=== PATIENT | male | born 1990 ===

== ENCOUNTER 2020-01-13 11:22 | Outpatient (REF) | payer OTHER, SELFPAY ==
[2020-01-13 14:32] LABS: Alanine Aminotransferase 14 U/L (0-40); Albumin Level 4.6 g/dL (3.5-5.0); Alkaline Phosphatase 82 U/L (39-117); Anion Gap 15 (12-20); Aspartate Amino Transferase 21 U/L (5-37); Blood Urea Nitrogen 14 mg/dL (9-16); Calcium 9.6 mg/dL (8.4-10.2); Carbon Dioxide 28 mmol/L (22-29); Chloride 102 mmol/L (96-108); Cholesterol 138 mg/dL; Estimated Glomerular Filt Rate > 60; Glucose Fasting 80 mg/dL (60-99); HDL Cholesterol 45 mg/dL; LDL Cholesterol Calculated 83 mg/dl; Potassium 4.6 mmol/l (3.3-5.1); Sodium 140 mmol/L (135-145); Total Protein 7.7 g/dL (6.5-8.0); Triglycerides 54 mg/dL
[2020-01-13 14:42] LABS: TSH reflex Free T4 2.46 mIU/mL (0.32-4.0)
== END 2020-01-13 11:23 | disposition home or self-care (01) ==
LOC: HO.HMGCLDS 11:22
PROVIDERS: PCP Nurse Practitioner Family; Visit Provider Nurse Practitioner Family
DX: Z00.00 Encounter for general adult medical examination without abnormal findings (principal); Z13.220 Encounter for screening for lipoid disorders; Z13.29 Encounter for screening for other suspected endocrine disorder
CPT/HCPCS: 80053; 80061; 84443

== ENCOUNTER 2022-01-27 12:00 | Outpatient (REF) | payer OTHER, SELFPAY ==
--- NOTE | ~2022-01-27 | XR_ITS ---
EXAMINATION: XR WRIST, LEFT CLINICAL INFORMATION: Left wrist pain COMPARISON: None TECHNIQUE: PA, lateral, oblique, and scaphoid views of the left wrist. FINDINGS: The bones and soft tissues are normal. No fracture. Alignment is anatomic with normal joint spaces. No erosions or abnormal soft tissue calcifications. XR/XR wrist LT min 3V IMPRESSION: Normal left wrist.
== END 2022-01-27 12:01 | disposition home or self-care (01) ==
LOC: HO.HMGCX 12:00
PROVIDERS: PCP Nurse Practitioner Family; Visit Provider Physician Assistant
DX: M25.532 Pain in left wrist (principal)
CPT/HCPCS: 73110

== ENCOUNTER → 2022-03-08 13:49 | Outpatient (BNVA) | payer OTHER, SELFPAY | PROVIDERS: PCP Nurse Practitioner Family; Visit Provider Orthopaedic Surgery | DX: M65.4 Radial styloid tenosynovitis [de Quervain] (principal) | CPT/HCPCS: 20550; 99202; J1100 ==

== ENCOUNTER → 2022-05-03 14:20 | Outpatient (BNVA) | payer OTHER, SELFPAY | PROVIDERS: PCP Nurse Practitioner Family; Visit Provider Orthopaedic Surgery | DX: M65.4 Radial styloid tenosynovitis [de Quervain] (principal) | CPT/HCPCS: 20550; 99212; J1100 ==

== ENCOUNTER → 2022-07-05 14:24 | Outpatient (BNVA) | payer OTHER, SELFPAY | PROVIDERS: PCP Nurse Practitioner Family; Visit Provider Orthopaedic Surgery | DX: M65.4 Radial styloid tenosynovitis [de Quervain] (principal) | CPT/HCPCS: 99212 ==

== ENCOUNTER 2022-07-06 11:30 | Outpatient (RCR) | payer OTHER, SELFPAY ==
--- NOTE | 2022-05-24 09:16 | MHC.OT.EP ---
[address] [phone] Occupational Therapy Plan of Care Patient Name: Mason Grace Date of Evaluation: 05/20/22 Diagnosis: Left wrist DeQuervains tenosynovitis Pain Location: 3-9. achy. Occasional sharp left radial wrist Pain Score: 6 Pain Scale Used: Numeric (0 - 10) Aggravating Factors: Left hand use , gripping, lifting , rotation Alleviating Factors: Avoiding, use of brace and occasional ibuprofen Assessment: Pt is a 31 yo male with a 4 month ho left Dequervains tenosynovitis slightly improved with 2 wrist injections and use of a Comfort cool thumb spica Today he report moderate to high level of pain significantly limiting his daily activities. ROM impairment and mild edema noted Pt will benefit from OT to address pain and progression of therapeutic exercise to promote healing and regain full pain free use of his non dominant left hand Frequency and Duration: The patient will be seen 2x wk x 5 wks Short Term Goals: Demo compliance with wrist protection and HEP Report <6/10 at worst with use of activity modification as needed Demo modified technique with lifting varying wt and sizes for left wrist protection Wrist ext to 65 deg Manager Sales Support Goals: Report pain free left wrist AROM and light ADL Report mild difficultly with daily activities using activity modifications as needed for pain management Quick DASH to < 30 pts Left wrist ext to 70 deg Left wrist ulnar deviation to 30 deg Treatment Plan: Therapeutic Exercise Therapeutic Activity Home Exercise Program Splinting Patient Education Edema Control ADL Training Ultrasound Paraffin MHP Cold Packs Joint Mobilization Soft Tissue Mobilization Electronically Signed By: Ava Vega OT CHT CLT Please Sign and return to therapist. Thank you once again for your referral.
--- NOTE | 2022-07-06 15:06 | MHC.OT.DC ---
[address] [phone] F: [phone] Occupational Therapy Discharge Note Patient Name: Mason Grace Provider: Cassidy Barroso Diagnosis: Left wrist DeQuervains tenosynovitis Date of Surgery: Date of Evaluation: 05/20/22 Date of Discharge: 07/06/22 Treatments to Date: 8 Cancellations to Date: No Shows to Date: Discharge Status: Improved Function Independent with HEP Recommend MD Follow-up Discharge Summary: Pt reports continued wrist pain and stiffness. Improvement in thumb and wrist AROM , less frequent high pain due to pt following protection techniques. Pt demonstrates good technique with ther ex and self taping Pt considering surgical option presented by Dr Barroso. Goals met for self management techniques for Dequervains sx and improved ROM. Pt to continue HEP and self management technique and to follow up with Dr Barroso if not improving over the next few months. Pt preferring to avoid a surgical option at this time Electronically Signed By: Ava Vega OT CHT CLT Reviewed/agree with student documentation: Therapist: Please Sign and return to therapist, thank you for your referral.
== END 2022-07-06 15:07 | disposition home or self-care (01) ==
LOC: HO.OT 11:30
PROVIDERS: PCP Nurse Practitioner Family; Visit Provider Orthopaedic Surgery
DX: M65.4 Radial styloid tenosynovitis [de Quervain] (principal)
CPT/HCPCS: 97033; 97035; 97110; 97140; 97165

== ENCOUNTER 2022-12-06 14:25 | Outpatient (AMB) | payer OTHER, SELFPAY ==
[2022-12-06 14:39] VITALS: BMI 22.0
--- NOTE | 2022-12-06 14:39 | MHC.OFFVIS ---
Intake Vital Signs 12/06/22 14:39 Height 5 ft 8 in Weight 145 lb BMI 22.0 Intake Visit Reasons: ov- DeQuervain's tenosynovitis, left Intake Note: Mason 31 yr old male presents today for his follow up Left De Quervain's Tenosynovitis, S/P injections on 05/03/22, 03/08/22. States he would like to discuss surgical intervention. Also has a small growth by his volar wrist which he noticed 2 months ago. Allergies No Known Allergies Allergy (Verified 12/06/22 14:44) HPI ov- DeQuervain's tenosynovitis, left HPI Details Mason is a 31 year old right hand dominant man who returns to discuss his left De Quervain's. He is S/P injections, the first on 03/08/22 which gave him mild relief, and his second was on 05/03/22, which he says gave him no relief. His primarily complaint today is of a new mass on the radial aspect of his left wrist, which is new. He says he still has some radial-sided wrist pain with certain motions or activities, but this has improved with daily stretching exercises. 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 He often has to lift the children and perform other physical activities which can occasionally cause him pain. [facility] Surgical History History of inguinal hernia repair Family History Father Diabetes mellitus Mother HTN (hypertension) Brother Smoker Chronic sinus complaints Maternal Grandmother No problems noted. Maternal Grandfather No problems noted. Paternal Grandfather No problems noted. Paternal Grandmother No problems noted. Social History Housing: House Alcohol intake: never Patient Tobacco Use Status: Never used Tobacco e-Cigarette/Vaping Use: Never Used Current occupational status: employed Current occupation: rt hand/ freelancer Cognitive needs: No Hearing needs: No Vision needs: No Physical Exam Vital Signs: BMI result Body Mass Index 22.0 Const General: no acute distress and alert Orientation/consciousness: patient oriented x3 Neuro General: patient oriented x3 Extrem Other: Evaluation of Left Upper Extremity: The patient is alert, oriented, and in no acute distress Neuro: Median, Ulnar, Radial nerves motor and sensory intact and sensation is normal to the tips of all digits No thenar or intrinsic wasting Vascular: Cap refill brisk ROM: He can make a fist and extend all his digits Mild tenderness over the 1st dorsal compartment of the left hand Mildly positive Dane test on the left His swelling has improved He has a mass on the 1st dorsal compartment of his left wrist consistent with a ganglion cyst, over the radial styloid. This measures ~8mm in diameter. Radiographs: 3 views of left wrist from 01/27/22 were reviewed by me today in clinic. They show no fractures, dislocations, or significant arthritic changes Psych Appearance: grossly normal Affect: normal affect Attitude: cooperative Assessment & Plan Assessment & Plan (1) De Quervain's tenosynovitis, left: Code(s): M65.4 - Radial styloid tenosynovitis [de Quervain] (2) Ganglion of left wrist: Code(s): M67.432 - Ganglion, left wrist Plan Assessment & Plan: 1. Left radial wrist ganglion Over the 1st dorsal compartment at the radial styloid Measuring ~8mm in diameter 2. Left De Quervain's Tenosynovitis, S/P injections Date of Injections: 05/03/22, 03/08/22 Positive Dane test I educated him about these conditions I discussed operative and non-operative treatment options The patient would like to proceed with surgery He has been babying his wrist in the last several months and is going to try to return to his normal activities between now and surgery. The risks and benefits of operative treatment were discussed with the patient and the patient wishes to proceed with surgery. These risks include, but are not limited to risk of damage to blood vessels, nerves, tendons, infection, recurrence, incomplete relief of preoperative symptoms, persistent pain, possible need for further surgery and the risks associated with regional blocks and anesthesia. The plan is to take the patient to the operating room sometime in the next few weeks for the following procedures: 1. Right 1st dorsal compartment release, under local 2. Right wrist ganglion excision, under local All of the preoperative paperwork including the consent was filled out today. All the patient's questions were answered. The patient understands that they will be contacted by our commercial loan administrator soon to schedule this procedure He denies Diabetes, blood thinners, asthma, heart, lung, kidney issues He is nervous about having surgery. If he changes his mind and decides to cancel his surgery, we did ask that he try to give us a weeks notice Scribed for Cassidy Barroso MD by Andrzej Irvin, medical advisor, on 12/06/22 at 3:05 PM, EST. Coding Level of Care Code Est Pt Level 4 (01957) Diagnoses De Quervain's tenosynovitis, left M65.4 Ganglion of left wrist M67.432
== END 2022-12-06 15:20 | disposition home or self-care (01) ==
PROVIDERS: PCP Nurse Practitioner Family; Visit Provider Orthopaedic Surgery
DX: M65.4 Radial styloid tenosynovitis [de Quervain] (principal); M67.431 Ganglion, right wrist
CPT/HCPCS: 99214

== ENCOUNTER → 2022-12-06 14:25 | Outpatient (BNVA) | payer OTHER, SELFPAY | PROVIDERS: PCP Nurse Practitioner Family; Visit Provider Orthopaedic Surgery | DX: M65.4 Radial styloid tenosynovitis [de Quervain] (principal); M67.432 Ganglion, left wrist | CPT/HCPCS: 99212 ==

== ENCOUNTER 2023-10-12 15:21 | Outpatient (AMB) | payer OTHER, SELFPAY ==
[2023-10-12 15:23] VITALS: BP 118/78; PULSE 86; O2SAT 97
--- NOTE | 2023-10-12 15:23 | MHC.PC.OV ---
Vital Signs 10/12/23 15:23 Height 5 ft 8 in BMI Reason not done Patient refused/unable BP 118/78 Blood Pressure Location Rt brachial Position Sitting Pulse 86 Pulse Source Pulse Oximeter Pulse Oximetry (%) 97 Intake Visit Reasons: EDF fx fibula, discuss bone density Intake Note: patient is here for ED follow up, wants to discuss bone density Pickling Grader Required: No Accompanied by: Self / Same As Patient Allergies No Known Allergies Allergy (Verified 10/12/23 15:23) Medication List - Last Reconciled 10/12/23 by GERMANIA Higgins No Known Home Meds Tobacco use date assessed: 10/12/23 Dental Screening Dental Screen Date: 10/12/23 Did you have a dental visit in the last 12 months?: Yes Did you have a dental problem in the last 6 months where you did not have access to dental care?: No Was dental information given to patient?: Patient has dentist HPI EDF fx fibula, discuss bone density HPI Details Pt was seen in the ER on 10/08 after twisting his left ankle while playing soccer. He reported pain to his left lower leg. XR showed fracture of fibula. Pt was placed in a splint. He was d/c with ibuprofen. Pt is following up with [facility]. Pt reports frequent fractures including toes, ankles, and shins. Pt has a strong family hx of osteoporosis around age 40. He is requesting a bone density, will order. Denies fever, chills, and dizziness. [facility] Medical History Left fibular fracture De Quervain's tenosynovitis, left Surgical History History of inguinal hernia repair Family History Father Diabetes mellitus Mother HTN (hypertension) Brother Smoker Chronic sinus complaints Maternal Grandmother No problems noted. Maternal Grandfather No problems noted. Paternal Grandfather No problems noted. Paternal Grandmother No problems noted. Social History Housing: House Alcohol intake: never Patient Tobacco Use Status: Never used Tobacco e-Cigarette/Vaping Use: Never Used service: No Current occupational status: employed Current occupation: rt hand/ freelancer Cognitive needs: No Hearing needs: No Vision needs: No Questionnaire PHQ-9 Over the last 2 weeks, how often have you been bothered by any of the following problems? 1. Little interest or pleasure in doing things: not at all 2. Feeling down, depressed, or hopeless: not at all 3. Trouble falling or staying asleep, or sleeping too much: several days 4. Feeling tired or having little energy: several days 5. Poor appetite or overeating: not at all 6. Feeling bad about yourself - or that you are a failure or have let yourself or your family down: not at all 7. Trouble concentrating on things, such as reading the newspaper or watching television: not at all 8. Moving or speaking so slowly that other people could have noticed. Or the opposite - being so fidgety or restless that you have been moving around a lot more than usual: not at all 9. Thoughts that you would be better off or of hurting yourself in some way: not at all Total score: 2 Depression Screening Interpretation: Negative Depression Screening Done: Yes 84220 - PHQ-9 Billing: Yes Source: Developed by Drs. Shilo Jean, Tressa Hassan, Armani Gross and colleagues, with an educational filipe from [employer]. Thrive Questionnaire Date Thrive assessed: 10/12/23 I am a: Patient What is your living situation today?: I have a steady place to live Within the past 12 months, did the food you bought not last and you didn't have the money to get more?: Never true Within the past 12 months, did you worry whether your food would run out before you got money to buy more?: Never true Do you have trouble paying for medicines?: No Do you have trouble getting transportation to medical appointments?: No Do you have trouble paying your heating and electricity bill?: No Do you have trouble taking care of your child, family member or friend?: No Do you have trouble with day-to-day activities such as bathing, preparing meals, shopping, managing finances, etc.?: No Are you currently unemployed and looking for a job?: No Are you interested in more education?: No Please select the resources that you would like help with: None Currently or been in a relationship where the following occur: No concerns reported THRIVE Score: 0 AUDIT C Alcohol Use Questionnaire (AUDIT-C) 1. How often do you have a drink containing alcohol?: Never 3. How often do you have six or more drinks on one occasion?: Never Total Score: 0 Score Reviewed/Action Taken: Yes KELSEA-7 AMB Questionnaire KELSEA-7 Date KELSEA - 7 assessed: 10/12/23 Feeling nervous, anxious, or on edge: 0 = Not at all Not being able to stop or control worryin = Not at all Worrying too much about different things: 0 = Not at all Trouble relaxin = Not at all Being so restless that it is hard to sit still: 0 = Not at all Becoming easily annoyed or irritable: 0 = Not at all Feeling afraid as if something awful might happen: 0 = Not at all Total KELSEA-7 score (0-4 normal; 5-9 mild; 10-14 moderate; 15-21 severe): 0 Source: Developed by Drs. Shilo Jean, Tressa Hassan, Armani Gross and colleagues, with an educational filipe from [employer]. KELSEA-7 Assessment Billing KELSEA-7 Assessment Tool: KELSEA-7 Assessment 48737 Review of Systems Const Reports as per HPI Physical exam (Primary Care) Vital Signs: Last Vital Signs Pulse 86 10/12/23 15:23 BP 118/78 10/12/23 15:23 Pulse Ox 97 10/12/23 15:23 Tobacco/Smoking Status: Tobacco use Status Tobacco use date assessed 10/12/23 10/12/23 15:25 Patient Tobacco Use Status Never used Tobacco 10/12/23 15:25 e-Cigarette/Vaping Use Never Used 10/12/23 15:25 PHQ-9: PHQ-9 Score PHQ-9: Total score 2 10/12/23 15:47 Depression Screening Interpretation: Negative Thrive Assessment: Date of Thrive Assessment Date Thrive assessed 10/12/23 10/12/23 15:25 Currently or been in a relationship where the following occur: No concerns reported Const General: cooperative Orientation/consciousness: patient oriented x3 Limitations: crutches Resp Effort & Inspection: normal respiratory effort Auscultation: clear to auscultation bilaterally Cardio Rate: regular rate Rhythm: regular rhythm Heart sounds: S1 normal heart sound present and S2 normal heart sound present Neuro General: patient oriented x3 Extrem Other: faint swelling to left mid fib, + dorsalis pedis pulse, good CMS to left foot, air cast in place Psych Appearance: grossly normal Mental Status: mental status grossly normal Speech and movement: Normal speech and movement present Affect: normal affect Attitude: cooperative Thought process: Normal thought process present Thought content: Normal thought content present Insight: Good insight present (Psych) Judgement: Good judgement present (Psych) Assessment and Plan Assessment & Plan (1) Left fibular fracture: Code(s): S82.402A - Unspecified fracture of shaft of left fibula, initial encounter for closed fracture Plan: cont to follow up with [facility] (2) Frequent fractures of bone: Code(s): Z87.81 - Personal history of (healed) traumatic fracture Plan: Bone density ordered Plan The patient agreed to the use of a medical technologist chemistry for this encounter. Scribed for ELENA Quiñones-BC by Maye Tierney medical technologist chemistry, on 10/12/2023 at 15:45 EST. Orders: Orders XR DEXA axial skeleton Today S82.402A - Unspecified fracture of shaft of left fibula, initial encounter for closed fracture, Z87.81 - Personal history of (healed) traumatic fracture Vitamin D 25-OH Total Today S82.402A - Unspecified fracture of shaft of left fibula, initial encounter for closed fracture, Z87.81 - Personal history of (healed) traumatic fracture Comprehensive Met. Panel Today S82.402A - Unspecified fracture of shaft of left fibula, initial encounter for closed fracture, Z87.81 - Personal history of (healed) traumatic fracture Complete Blood Count Auto Diff Today S82.402A - Unspecified fracture of shaft of left fibula, initial encounter for closed fracture, Z87.81 - Personal history of (healed) traumatic fracture TSH reflex Free T4 Today S82.402A - Unspecified fracture of shaft of left fibula, initial encounter for closed fracture, Z87.81 - Personal history of (healed) traumatic fracture Coding Level of Care Code Est Pt Level 3 (01679) Diagnoses Left fibular fracture S82.402A Frequent fractures of bone Z87.81 Additional Codes KELSEA-7 Assessment Billing - KELSEA-7 Assessment Tool: KELSEA-7 Assessment [id number] ([id number])
== END 2023-10-12 16:43 | disposition home or self-care (01) ==
PROVIDERS: PCP Nurse Practitioner Family; Visit Provider Nurse Practitioner Family
DX: S82.402A Unspecified fracture of shaft of left fibula, initial encounter for closed fracture (principal); Z87.81 Personal history of (healed) traumatic fracture
CPT/HCPCS: 99213

== ENCOUNTER 2023-10-16 11:55 | Outpatient (REF) | payer OTHER, SELFPAY ==
[2023-10-16 13:21] LABS: MANUAL DIFF FLAG NO
[2023-10-16 13:29] LABS: Basophils Percent Auto 0.5 % (0-2); Eosinophils Absolute Auto 0.1 X10*3/uL (0.0-0.4); Eosinophils Percent Auto 1.2 % (0-4); Hematocrit 45.4 % (42.0-52.0); Hemoglobin 15.5 g/dl (14.0-18.0); Imm Gran Abs Auto 0.02 X10*3/uL (0.00-0.03); Imm Gran Pct Auto 0.3 % (0.0-0.4); Lymphocytes Absolute Auto 2.5 X10*3/uL (1.2-4.9); Lymphocytes Percent Auto 32.7 % (20-40); Mean Corpuscular HGB Conc 34.1 g/dl (31.0-36.0); Mean Corpuscular Hemoglobin 29.4 pg (27.0-33.0); Mean Platelet Volume 10.1 fL (9.4-12.4); Monocytes Absolute Auto 0.5 X10*3/uL (0.1-1.2); Monocytes Percent Auto 6.3 % (2-11); Neutrophils Absolute Auto 4.4 x10*3/uL (2.0-8.3); Platelet Count 281 X10*3/uL (160-400); Red Blood Count 5.28 X10*6/uL (4.60-5.80); Red Cell Distribution Width 12.2 % (11.0-16.0); White Blood Count 7.5 X10*3/uL (4.8-10.8)
[2023-10-16 14:42] LABS: Alanine Aminotransferase 28 U/L (0-40); Albumin Level 4.5 g/dL (3.5-5.0); Alkaline Phosphatase 76 U/L (39-117); Anion Gap 15 (12-20); Aspartate Amino Transferase 26 U/L (5-37); Bilirubin Total 0.6 mg/dL (0.0-1.0); Blood Urea Nitrogen 19 mg/dL (9-16); Calcium 9.7 mg/dL (8.4-10.2); Carbon Dioxide 26 mmol/L (22-29); Chloride 105 mmol/L (96-108); Estimated Glomerular Filt Rate > 60; Glucose Random 96 mg/dL (60-115); Potassium 3.7 mmol/L (3.3-5.1); Sodium 142 mmol/L (135-145); TSH reflex Free T4 1.94 uIU/mL (0.32-4.0); Total Protein 7.6 g/dL (6.5-8.0); Vitamin D 25-OH Total 25.3 ng/mL (>30)
== END 2023-10-16 11:56 | disposition home or self-care (01) ==
LOC: HO.HMGCLDS 11:55
PROVIDERS: PCP Nurse Practitioner Family; Visit Provider Nurse Practitioner Family
DX: S82.402A Unspecified fracture of shaft of left fibula, initial encounter for closed fracture (principal); Z87.81 Personal history of (healed) traumatic fracture
CPT/HCPCS: 36415; 80053; 82306; 84443; 85025

== ENCOUNTER 2023-11-07 12:42 | Outpatient (REF) | payer OTHER, SELFPAY ==
--- NOTE | ~2023-11-07 | MM_ITS ---
EXAMINATION: BONE DENSITOMETRY CLINICAL INDICATION: Unspecified fracture of shaft of left fibula, initial encounter. COMPARISON: This is the patient's baseline examination. TECHNIQUE: Using a Roobiq DXA System (software version: 13.1) manufactured by [employer], dual-energy x-ray absorptiometry was performed of the lumbar spine and left hip. The images are of good technical quality. Based on ISCD (International Society for Clinical Densitometry) standards of reporting, Z-scores instead of T-scores are reported in this 32-year-old male. Summary results are attached. FINDINGS: AP SPINE BMD 1.284 g/cm2, T-score 0.5, Z-score 1.0, Z-score within expected range for age. LEFT FEMUR, NECK: BMD 1.163 g/cm2, T-score 0.7, Z-score 1.0, Z-score within expected range for age. LEFT FEMUR, TOTAL: BMD 1.204 g/cm2, T-score 0.7, Z-score 1.1, Z-score within expected range for age. IDENTIFIED RISK FACTORS: None listed. HISTORY OF FRACTURE: None listed. MEDICATIONS: Vitamin D. MM/XR DEXA axial skeleton IMPRESSION: 1. DIAGNOSIS: Based on the lowest Z-score value of 1.0 in the lumbar spine and femur neck, the patient's bone density is within the expected range for age. 2. 10-YEAR FRACTURE RISK PREDICTION, FRAX: Not performed in this patient outside the age range of 40-90 years. 3. Treatment Recommendations: NOF guidelines recommend consideration for treatment in postmenopausal women and men age 50 and older presenting with the following: -A hip or vertebral (clinical or morphometric) fracture. -T-score less than or equal to -2.5 at the femoral neck or spine after appropriate evaluation to exclude secondary causes. -Low bone mass at the hip or spine and a 10-year fracture probability by FRAX of greater than or equal to 3% for hip fracture or greater than or equal to 20% for major osteoporotic fracture based on the [place] adapted WHO algorithm. 4. Other Recommendations: All treatment decisions require clinical judgment and consideration of individual patient factors, including patient preferences, comorbidities, previous drug use, risk factors not captured in the FRAX model (e.g. frailty, falls, vitamin D deficiency, increased bone turnover, interval significant decline in bone density) and possible under or overestimation of fracture risk by FRAX. FUTURE SCAN RECOMMENDATION: People with diagnosed cases of osteoporosis or at high risk for fracture should have regular bone mineral density tests. For patients eligible for Medicare, routine testing is allowed once every 2 years. The testing frequency can be increased to one year for patients who have rapidly progressing disease, those who are receiving or discontinuing medical therapy to restore bone mass, or have additional risk factors. Electronically signed by: Hernán Hawkins MD 11/14/2023 01:50 PM EDT
== END 2023-11-07 12:43 | disposition home or self-care (01) ==
LOC: HO.MAMMO 12:42
PROVIDERS: PCP Nurse Practitioner Family; Visit Provider Nurse Practitioner Family
DX: Z13.820 Encounter for screening for osteoporosis (principal); S82.402A Unspecified fracture of shaft of left fibula, initial encounter for closed fracture; Z87.81 Personal history of (healed) traumatic fracture
CPT/HCPCS: 77080

== ENCOUNTER 2025-01-24 10:19 | Outpatient (REF) | payer OTHER, SELFPAY ==
--- OUTSIDE RECORDS SUMMARY | 2025-01-24 11:42 | XMS_ITS | Encounter Summary ---
Author Organization [facility] [employer] [facility] Address [address] [place] [address] Care Team Providers Care Supervisor Calibration Name Role Phone Unavailable Primary Care Provider Unavailabl e Encounter Details Date Type Department Care Team (Latest Contact Info) Description 05/31/2018 Abstract [facility]VERSION[facility] Dental, Provider, DDS Social History Tobacco Use Types Packs/Day Years Used Date Smoking Tobacco: Never Assessed Sex and Gender Information Value Date Recorded Sex Assigned at Male 12/06/2021 10:27 AM EDT Legal Sex Male 10:27 AM EDT Gender Identity Male 11/02/2023 2:06 PM EDT Sexual Orientation Straight 11/02/2023 2: 06 PM EDT documented as of this encounter Plan of Treatment Not on file documented as of this encounter Visit Diagnoses Not on filedocumented in this encounter
--- OUTSIDE RECORDS SUMMARY | 2025-01-24 11:42 | XMS_ITS | Clinical Summary ---
Author Organization Formerly [facility] [employer] Address [address] [place] [address] Care Team Providers Care Inspector [employer] Name Role Phone Unavailable Primary Care Provider Unavailabl e Allergies No known active allergies Medications ibuprofen 600 MG tablet TAKE 1 TABLET BY MOUTH FOUR TIMES A DAY NEEDED FOR PAIN 10/10/2023 Active cholecalciferol VITAMIN D (Vitamin D-3) 50 MCG (1999) capsule Take by mouth Once per day. 10/16/2023 Active Social History Tobacco Use Types Packs/Day Years Used Date Smoking Tobacco: Never Passive Smoke Exposure: Never Smokeless Tobacco: Never Tobacco Cessation:Counseling Given: Not Answered Sex and Gender Information Value Date Recorded Sex Assigned at Male 12/06/2021 10:27 AM EDT Legal Sex Male 10:27 AM EDT Gender Identity Male 11/02/2023 2:06 PM EDT Sexual Orientation Straight 11/02/2023 2: 06 PM EDT Last Filed Vital Signs Vital Sign Reading Time Taken Comments Blood Pressure 112/66 05/07/2024 12:58 PM EDT Pulse 65 05/07/2024 12:58 PM EDT Temperature - - Respiratory Rate - - Oxygen Saturation - - Inhaled Oxygen Concentration - - Weight - - Height - - Body Mass Index - - Plan of Treatment Health Maintenance Due Date Last Done Comments Depression Screening 1992 HIV Screening 1992 SDOH Screening 1992 Disability Screening 1992 Alcohol/Substance Use Screening 2004 Family Planning (PISQ) 12/22/2007 HPV Vaccines (1 - Male 3-dose series) 12/22/2007 Hepatitis C Screening 2010 DTaP/Tdap/Td Vaccines (1 - Tdap) 12/22/2011 Hepatitis B Vaccines (1 of 3 - 19+ 3-dose series) 12/22/2011 COVID-19 Vaccine (5 - 2025-26 season) 2024 01/17/2022, 01/29/2021, 06/05/2020, Additional history exists Influenza Vaccine (#1) 2024 10/26/2019 Dental X-Ray: Bitewings 11/06/2024 11/06/19 24, 11/24/2017, 06/17/2016, Additional history exists Dental Oral Exam 11/07/2024 05/07/2024, , 12/13/2018, Additional history exists Dental Prophylaxis 11/07/2024 05/07/2024, 0 11/06/2023, 12/13/2018, Additional history exists Tobacco Screening 06/26/2025 06/26/2024 Dental X-Ray: Full Mouth 05/09/2027 025, 11/06/2023, 05/03/2018, Additional history exists Zoster Vaccines (1 of 2) 2042 RSV Patients and Patients Aged 60 years or older (1 - 1-dose 75+ series) 12/22/2067 Meningococcal Vaccine Aged Out 10/11/2015 No kenisha gail eligible based on patient's age to complete this topic HIB Vaccines Aged Out No longer eligi ble based on patient's age to complete this topic Hepatitis A Vaccines Aged Out No long er eligible based on patient's age to complete this topic IPV Vaccines Aged Out No longer eligi ble based on patient's age to complete this topic Meningococcal B Vaccine Aged Out No l onger eligible based on patient's age to complete this topic Pneumococcal Vaccine: Pediatrics (0 to 5 Years) and At-Risk Patients (6 to 49) Years Aged Out No longer eligible based on patient's age to complete this topic RSV under 20 months Aged Out No longe r eligible based on patient's age to complete this topic Rotavirus Vaccines Aged Out No longer eligible based on patient's age to complete this topic Procedures Procedure Name Priority Date/Time Associated Diagnosis Comments PROPHYLAXIS - ADULT Routine 05/07/2024 1 :00 PM EDT PANORAMIC RADIOGRAPHIC IMAGE Routine 05/07/2024 1:00 PM EDT PERIODIC ORAL EVALUATION - ESTABLISHED PATIENT Routine 05/07/2024 1:00 PM EDT INTRAORAL - COMPLETE SERIES OF RADIOGRAPHIC IMAGES Routine 11/06/2023 3:00 PM EDT Gingivitis from Last 3 Months or Most Recently Relevant to Health Maintenance Insurance [facility] STAND ADULT
--- OUTSIDE RECORDS SUMMARY | 2025-01-24 11:42 | XMS_ITS | Patient Health Record ---
Author Organization [facility] Address [address] [place] [address] Support Name Relationship Address Phone Mason Grace Guarantor Unknown [phone] Allergies No Known Allergies Reason For Referral No Information Medications Medication SIG (Take, Route, Frequency, Duration) Notes Start Date End Date Status Tylenol for tendonitis, PRN Active Social History Sex Assigned At : Social History Observation Description Sex Assigned At Male Social History HIV Risk Assessment Social Info Question Answer Notes Additional Questions Is an HIV Risk Assessment being c onducted? No Reproductive Life Plan: Social Info Question Answer Notes Reproductive Life Plan: Do you want to have children? No How sure are you that you will be able to use your control method without any problems? Very sure People's plans change. Is it possible you or your partner could ever decide to become ? No Human Trafficking: Social Info Question Answer Notes Human Trafficking Experienced: No PrEP for HIV: Social Info Question Answer Notes PrEP for HIV Is the client intere sted in beginning/continuing PrEP for HIV? No Sexual History: Social Info Question Answer Notes Sexual History: Sexual History Reviewed: Partner s, Practices, Protection/Past STIs, Prevention of Currently sexually active? Yes Sexually active with: Women Number of female partners 1 Your sexual activities include: oral intercourse, vaginal intercourse Reviewed types of EC? No Do you use condoms? No Date of last unprotected intercourse: 07/10/2023 Number of partners in past 3 months: 1 Number of partners in past year: 1 What is the client's primary method to prevent at the end of their visit? Withdrawal Does your partner(s) currently have any STIs? No Counseling Provided: Social Info Question Answer Notes Counseling Provided Please indicate the length of time, in minutes, that counseling was provided. 5 Counseling Was Provided By: [facility] Drugs/Alcohol: Social Info Question Answer Notes Drug/Alcohol Use Do you or have you used drugs? No Do you or have you used alcohol? No Food Access: Social Info Question Answer Notes Food Access The Client's current access to food is Secure Food Access Relationships: Social Info Question Answer Notes Relationships Has the client experienced any of the following: Client has never experienced harmful relationships DO NOT USE - Travel Plans: Social Info Question Answer Notes Travel Plans DO NOT USE - Has cli ent traveled to any Zika affected areas? Yes DO NOT USE - Has partner traveled to any Zika af fected areas? Yes DO NOT USE - Is client planning to travel to any Zika affected areas? No DO NOT USE - Is partner planning to travel to an y Zika affected areas? No Housing Social Info Question Answer Notes Housing The client's current living situation is: stable housing Tobacco Use: Social Info Question Answer Notes Tobacco Use: Do you/have you used tobacco? No Tobacco Smoking Status Former smoker Section Notes: mycoplasma Plan Of Treatment No Information Insurance Providers Payer Name Payer Address Payer Phone Subscriber Number Group Number Insured Name Patient Relationship to Insured Coverage Start Date Coverage End Date [place] ATT CLAIMS [address] [place] [id number] Mason Grace Self - patient is the insured Medical (General) History Medical History History ICD Code Tendonitis Mycoplasma tx , 5, Surgical History Surgery Date(Month/Year) hernia
[2025-01-24 15:10] LABS: MANUAL DIFF FLAG NO
[2025-01-24 15:14] LABS: Hematocrit 45.0 % (42.0-52.0); Hemoglobin 15.1 g/dl (14.0-18.0); Imm Gran Abs Auto 0.02 X10*3/uL (0.00-0.03); Imm Gran Pct Auto 0.3 % (0.0-0.4); Lymphocytes Absolute Auto 2.7 X10*3/uL (1.2-4.9); Mean Corpuscular HGB Conc 33.6 g/dl (31.0-36.0); Mean Corpuscular Hemoglobin 29.0 pg (27.0-33.0); Mean Corpuscular Volume 86.4 fL (80.0-98.0); NRBC Abs Auto 0.000 X10*3/uL (0.0-0.012); NRBC Pct Auto 0.0 /100WBC (0.0-0.2); Platelet Count 264 X10*3/uL (160-400); Red Blood Count 5.21 X10*6/uL (4.60-5.80); White Blood Count 6.6 X10*3/uL (4.8-10.8)
[2025-01-24 15:24] LABS: Appearance Urine Clear; Glucose Urine UA Negative (Negative); PH 7.0 (5.0-9.0); Specific Gravity - Urine 1.020 (1.005-1.025)
[2025-01-24 15:40] LABS: Alanine Aminotransferase 31 U/L (0-40); Albumin Level 4.6 g/dL (3.5-5.0); Alkaline Phosphatase 66 U/L (39-117); Anion Gap 10 (12-20); Aspartate Amino Transferase 34 U/L (5-37); Blood Urea Nitrogen 12 mg/dL (9-16); Calcium 9.3 mg/dL (8.4-10.2); Carbon Dioxide 29 mmol/L (22-29); Chloride 105 mmol/L (96-108); Cholesterol 152 mg/dL (<200); Estimated Glomerular Filt Rate > 60; HDL Cholesterol 39 mg/dL (>40); Potassium 3.7 mmol/L (3.3-5.1); Sodium 140 mmol/L (135-145); Total Protein 7.3 g/dL (6.5-8.0); Triglycerides 90 mg/dL (<150)
== END 2025-01-24 10:20 | disposition home or self-care (01) ==
LOC: HO.HMGCLDS 10:19
PROVIDERS: PCP Nurse Practitioner Family; Visit Provider Nurse Practitioner Family
DX: Z00.00 Encounter for general adult medical examination without abnormal findings (principal)
CPT/HCPCS: 36415; 80053; 80061; 81003; 84443; 85025